=== PATIENT | female | born 1975 | race Caucasian/White ===

== ENCOUNTER 2020-12-15 11:17 | Emergency (ER) | payer BC, SELFPAY ==
--- NOTE | ~2020-12-15 | US_ITS ---
EXAMINATION: US abdomen limited DATE: 12/15/2020 12:23 INDICATION: Abdominal pain TECHNIQUE: Multiple grayscale and Doppler ultrasound images of the abdomen were obtained. COMPARISON: None available FINDINGS: The head and body of the pancreas are normal. The pancreatic tail is obscured by bowel gas. The liver demonstrates increased echogenicity, heterogenous echotexture, and decreased through trans mission. No surface nodularity. Normal hepatopetal flow in the main portal vein. The gallbladder is n ormal with no abnormal wall thickening, pericholecystic fluid or stones. The mildly dilated common bi le duct measures 8 mm. Sonographic Melissa sign is positive. IMPRESSION: 1. Mild enlargement of the common bile duct and positive sonographic Melissa sign of unclear significa nce. Normal-appearing gallbladder. Reviewed, dictated and finalized at location A. IMPRESSION: 1. Mild enlargement of the common bile duct and positive sonographic Melissa sig n of unclear significance. Normal-appearing gallbladder.
--- NOTE | ~2020-12-15 | CT_ITS ---
EXAMINATION: CT abdomen pelvis w con DATE: 12/15/2020 15:05 INDICATION: Abdomen pain. Pancreatitis. TECHNIQUE: Computed tomography (CT) of the abdomen and pelvis was performed with 100 cc Omnipaque 350 intravenous contrast. The dose-length product was 1246.67 mGy-cm. Automated exposure control and ite rative reconstruction technique were employed. COMPARISON: None. FINDINGS: Lung bases are unremarkable. Heart size is normal. No significant pleural or pericardial ef fusion. No significant vascular abnormality. No lymphadenopathy. Fatty infiltration of the liver. There is a fat-containing umbilical hernia. The spleen, pancreas, adrenal glands and kidneys are unremarkable. Bowel pattern is nonobstructive. N o abnormal pelvic masses or fluid collections. Bladder is decompressed. Normal appendix. Gallbladder is present. Mild lower thoracic and lumbar spondylosis. No acute osseous abnormality. IMPRESSION: 1. No acute abdominal abnormality. 2: Hepatic steatosis. 3: Fat-containing umbilical hernia. Reviewed, dictated and finalized at location A.
[2020-12-15 11:22] VITALS: BP 138/97; PULSE 95; RESP 18; TEMP 36.8; O2SAT 100
[2020-12-15 11:52] LABS: Basophils Percent Auto 0.3 % (0.2-1.2); Eosinophils Absolute Auto 0.1 K/mm3 (0-0.3); Eosinophils Percent Auto 1.1 % (0-4.4); Hematocrit 45.4 % (37.0-47.0); Hemoglobin 15.6 g/dL (12.0-15.0); Immature Granulocyte Absolute 0.11 K/mm3 (0.00-0.031); Immature Granulocyte Percent A 1.1 % (0-0.5); Lymphocytes Absolute Auto 2.15 K/mm3 (0.9-3.2); Lymphocytes Percent Auto 21.7 % (18.3-44.2); Mean Corpuscular HGB Conc 34.4 g/dl (32-36); Mean Corpuscular Hemoglobin 30.6 pg (26-34); Mean Platelet Volume 10.2 fl (7.4-10.4); Monocytes Absolute Auto 0.5 K/mm3 (0.1-0.6); Monocytes Percent Auto 5.4 % (2.6-8.5); Neutrophils Percent Auto 70.4 % (45.5-73.1); Platelet Count Result 197 k/mm3 (150-375); Red Cell Distribution Width 12.1 % (11.5-14.5); White Blood Count 9.9 K/mm3 (4.5-10.0)
[2020-12-15 11:56] LABS: Add Urine Microscopic? YES; Appearance Urine Clear (Clear); Bilirubin Urine Negative (Negative); Blood Urine Negative (Negative); Color Urine Yellow (Yellow); Glucose Urine UA 1+ mg/dL (Negative); Ketones Urine Negative (Negative); Leukocyte Esterase Ur Negative LEU/UL (Negative); Nitrate Urine Negative (Negative); Protein Urine Negative (Negative); RBC Urine 0-2 /hpf (0-2); Specific Grav Ur 1.009 (1.001-1.035); Squamous Epithelial Cell Urine Occasional /hpf (Few); Urobilinogen Urine Negative mg/dL (<2.0); WBC Urine 0-3 /hpf
--- NOTE | 2020-12-15 11:56 | ED.GENADULT ---
HPI - General Adult General Chief complaint: Abdominal Pain Stated complaint: my gallbladder went kaput Time Seen by Provider: 12/15/20 11:40 Source: patient History of Present Illness HPI narrative: Patient is a 45 y/o female complaining of intermittent epigastric pain starting 1 week. She describes her pain as sharp and rates it as 7/10. Her pain radiates to her back and chest. She states that certain food makes her pain worse. She took Ex-lax which did not help with her pain. She has some nausea, but no vomiting or diarrhea. She states that she was told she had gallbladder problem 9 years ago. Related Data Allergies Allergy/AdvReac Type Severity Reaction Status Date / Time latex AdvReac Rash Verified 12/15/20 11:25 Review of Systems Constitutional: Constitutional: Denies chills, Denies fever(s), Denies headache(s) and Denies weakness Eyes: Eyes: Denies blurry vision ENT: Denies headache(s) and Denies neck pain Cardiovascular: Cardiovascular: Reports chest pain and Denies dyspnea Respiratory: Respiratory: Denies cough and Denies dyspnea Gastrointestinal: Gastrointestinal: Reports abdominal pain, Denies diarrhea, Reports nausea and Denies vomiting Genitourinary: Genitourinary: Denies hematuria and Denies dysuria Musculoskeletal: Musculoskeletal: Denies back pain and Denies neck pain Neurologic: Denies headache(s) and Denies weakness Exam Const: General: no acute distress and well developed Orientation/consciousness: oriented to person, oriented to place, oriented to time and patient oriented x3 HENMT: Head: normocephalic Ears: external ears normal General nose exam: Normal external nose present Eyes: General: appearance normal, both eyes and all related structures Conjunctivae: conjunctivae normal Neck: Neck: normal visual inspection and full ROM Chest: Chest palpation & inspection: normal inspection of the chest and no tenderness Resp: Effort & Inspection: normal respiratory effort Auscultation: clear to auscultation bilaterally Cardio: Rate: regular rate Rhythm: regular rhythm GI: GI Palp: Yes abdominal tenderness (epigastric) and Yes Soft to palpation Skin: General skin exam: normal color and turgor normal Neuro: General: oriented to person, oriented to place, oriented to time and patient oriented x3 Cognition (Neuro): normal cognition Extrem: General: normal to inspection, full ROM and no pedal edema Psych: Appearance: grossly normal Mental Status: mental status grossly normal Affect: normal affect Course Reevaluation(s) Reevaluation #1: Discussed with patient about test results. Offered patient admission for observation and GI consultation. Patient declined and wanted to be discharged instead. Date: 12/15/20 Time: 16:40 Consultations Consultation #1: Discussed with Dr. Ethan paul, who agrees to follow up in office. Date: 12/15/20 Time: 16:43 Vital Signs Vital signs: Vital Signs Temperature 36.8 C 12/15/20 11:22 Pulse Rate 95 12/15/20 11:22 Respiratory Rate 18 12/15/20 11:22 Blood Pressure 138/97 H 12/15/20 11:22 Pulse Oximetry 100 12/15/20 11:22 Temperature 36.8 C 12/15/20 11:22 Pulse Rate 78 12/15/20 17:17 Respiratory Rate 18 12/15/20 17:17 Blood Pressure 142/90 H 12/15/20 17:17 Pulse Oximetry 100 12/15/20 17:17 Medical Decision Making Vital Signs Vital Signs: Vital Signs Temperature 36.8 C 12/15/20 11:22 Pulse Rate 95 12/15/20 11:22 Respiratory Rate 18 12/15/20 11:22 Blood Pressure 138/97 H 12/15/20 11:22 Pulse Oximetry 100 12/15/20 11:22 Temperature 36.8 C 12/15/20 11:22 Pulse Rate 78 12/15/20 17:17 Respiratory Rate 18 12/15/20 17:17 Blood Pressure 142/90 H 12/15/20 17:17 Pulse Oximetry 100 12/15/20 17:17 Lab Data Result diagrams: 12/15/20 11:41 12/15/20 11:41 Labs: Lab Results 12/15/20 12/15/20 12/15/20 Range/Units 11:40 11:41 11:41 WBC 9.9 (4.5-10.
[2020-12-15] MEDS: KETOROLAC 30 MG/ML VIAL (*BKC) IV PUSH (12:02)
[2020-12-15] MEDS: METOCLOPRAMIDE HCL INJ 10 MG/2 ML VIAL IV PUSH (12:02)
--- NOTE | 2020-12-15 12:03 | ECG_ITS ---
Measurements Intervals Rescue Rate: 76 P: 38 [place]: 139 QRS: 38 QRSD: 82 T: 48 QT: 391 QTc: 440 Interpretive Statements SINUS RHYTHM BASELINE WANDER- I, II, AVR, AVL, AVF, V1-V6 NORMAL ECG Electronically Signed On 12-15-2020 16:06:04 CDT by Mahamed Mckinney D.O.
[2020-12-15 13:09] LABS: Alanine Aminotransferase 23 U/L (4-35); Albumin Level 3.7 g/dL (3.5-5.1); Alkaline Phosphatase 65 U/L (38-126); Anion Gap 6 mmol/L (8-16); Aspartate Amino Transferase 19 U/L (14-36); Bilirubin,Total 0.2 mg/dL (0.2-1.3); Blood Urea Nitrogen 4 mg/dL (7-17); Calcium 8.8 mg/dL (8.4-10.2); Carbon Dioxide 26 mmol/L (22-30); Chloride 108 mmol/L (98-107); Estimated CRCL calculation 89 ml/min; Estimated Glomerular Filt Rate > 60; Glucose 179 mg/dL (65-110); Potassium 3.3 mmol/L (3.4-5.0); Sodium 140 mmol/L (137-145)
[2020-12-15 13:28] VITALS: BP 126/72; PULSE 83; RESP 18; O2SAT 99
[2020-12-15 14:14] LABS: Lipase 12034 U/L (23-300)
[2020-12-15 14:41] LABS: Troponin I < 0.012 ng/mL (0.000-0.034)
[2020-12-15] MEDS: POTASSIUM CHLORIDE 20 MEQ TABLET PO (14:56)
[2020-12-15 16:00] LABS: Troponin I < 0.012 ng/mL (0.000-0.034)
[2020-12-15 17:17] VITALS: BP 142/90; PULSE 78; RESP 18; O2SAT 100
== END 2020-12-15 17:15 | disposition home or self-care (01) ==
PROVIDERS: Emergency Medicine; Emergency Provider Emergency Medicine
DX: K85.90 Acute pancreatitis without necrosis or infection, unspecified (principal)
CPT/HCPCS: 36415; 74177; 76705; 80053; 81001; 81025; 83690; 84484; 85025; 93005; 96374; 96375; 99284; A9270; J1885; J2765; Q9967

== ENCOUNTER → 2021-02-20 00:59 | Outpatient (CLI) | payer BC, SELFPAY ==
[2021-02-21 16:52] LABS: SARS-CoV-2 RNA PCR Negative
== END ==
PROVIDERS: PCP Emergency Medicine; Visit Provider Internal Medicine Gastroenterology
DX: Z01.812 Encounter for preprocedural laboratory examination (principal); Z20.822 Contact with and (suspected) exposure to COVID-19
CPT/HCPCS: C9803; U0003; U0005

== ENCOUNTER 2021-02-25 00:04 | Day surgery (SDC) | payer BC, SELFPAY ==
[2020-12-31 12:00] VITALS: BMI 39.1
[2021-02-06 10:59] VITALS: BMI 39.1
--- NOTE | 2021-02-06 11:14 | PC.NURSE ---
Spoke with pt re rescheduled EGD & colonoscopy. Pt confirmed no change to home medication regimen or changes in health history since previously completed PAT call on 12/31/20. Updated pt with new COVID test date & time as well as hospital arrival/procedure start time. Pt verbalized understanding.
[2021-02-25 08:31] VITALS: BP 132/98; PULSE 94; RESP 17; TEMP 36.1; O2SAT 100
[2021-02-25] MEDS: LACTATED RINGERS 1,000 ML 150 ML IV CONT (08:44)
--- NOTE | 2021-02-25 08:54 | WPDANESEPPF ---
Anes - Initial Pre Proc Eval Procedure: Operation Date: 02/25/21 09:45 Proposed Procedures p Esophagogastroduodenoscopy & Screening Colonoscopy - Rashawn Sloan MD Date/Time: 02/25/21 08:54 Surgeon: Rashawn Sloan MD Pre Op Diagnosis: neoplasm screening, hx of colon polyps, RUQP Patient Data Age: 45 Gender: F Height: 1.55 m Weight: 96.1 kg Last Vital Signs Temp 96.9 F L 02/25/21 08:31 Pulse 94 02/25/21 08:31 Resp 17 02/25/21 08:31 BP 132/98 H 02/25/21 08:31 Pulse Ox 100 02/25/21 08:31 Allergies Allergy/AdvReac Type Severity Reaction Status Date / Time adhesive tape AdvReac Rash Verified 02/25/21 08:30 latex AdvReac Rash Verified 02/25/21 08:30 Home Medications Medication Instructions Recorded Confirmed Type No Home Medications 12/31/20 02/06/21 History Patient hx anesthesia problems: none Family hx anesthesia problems: none Results Review: All pre-operative results and documents have been reviewed as part of the pre-operative evaluation. [facility] Past Medical History Medical History (Updated 12/18/20 @ 09:26 by Rashawn Sloan MD) Colon polyp Obesity (BMI 30-39.9) RUQ pain Tobacco abuse Umbilical hernia Social History Social History (Updated 12/18/20 @ 08:59 by Christie Draper CMA) Smoking packs per day: 2 Smoking cigarettes per day: 40.0 Years smoked: 30 Smoking pack-years: 60.00 Smoking status: Current every day smoker Tobacco type: cigarettes Alcohol intake: current Alcohol use details: social Substance use: current Substance use type: marijuana Other substance usage details: daily Living arrangements: with family Spiritual care concerns: No Anes - Eval Final PreProcedure Day of Procedure 02/25/21 08:54 Patient weight: morbidly obese Heart: regular rate and rhythm Lungs: clear to auscultation Airway: Mallampati scale class II Neurological: alert and oriented Last oral intake: >/= 8 hours ASA classification: III Emergent: no Anesthetic plan: proceed Anesthesia type and monitoring: general GIVS and standard monitoring Results Review: All pre-operative results and documents have been reviewed as part of the pre-operative evaluation. Informed Consent: The patient's anesthetic plan and its attendant risks and benefits were discussed with the patient/family/POA. Questions were solicited and answers provided to the satisfaction of the patient/family/POA.
--- NOTE | 2021-02-25 09:09 | SUR.PREOP ---
Upon admission, patient states she had has a tubal ligation in past and had not had a period for 1.5 years, however she states she started a period randomly last night. Informed Dr. Fernandez, who stated that urine test is not needed due to previous tubal ligation. Urine ordered cancelled.
--- NOTE | 2021-02-25 09:24 | PM.HPGS ---
History of Present Illness History of Present Illness Consent: Risks, benefits, and alternatives have been discussed and questions answered. Patient agrees to proceed with procedure. Chief complaint: neoplasm screening, hx of colon polyps, RUQP Narrative: Brigitte Quesada is a 45 year old female with ruq pain and previous pancreatitis, probably GB related- already seen surgeon at [facility] and schedule to have lap bjorn in near future, she is doing ok now. Also due to have a colonoscopy (had polyps years ago) Review of Systems Constitutional: Constitutional: Denies headache(s) and Denies weakness Eyes: Eyes: Denies blurry vision ENT: Reports Normal hearing present, Denies headache(s) and Denies neck pain Cardiovascular: Cardiovascular: Denies chest pain and Denies dyspnea Respiratory: Respiratory: Denies dyspnea Gastrointestinal: Gastrointestinal: Reports no additional gastrointestinal complaints Genitourinary: Genitourinary: Denies dysuria Musculoskeletal: Musculoskeletal: Denies neck pain Integumentary/Breasts: Skin/Breast: Denies dry skin Neurologic: Reports Normal hearing present, Denies headache(s) and Denies weakness Psychiatric: Psychiatric: Denies anxiety Endocrine: Endocrine: Denies change in body appearance Hematologic/Lymphatic: Hematologic/Lymphatic: Denies easy bleeding Allergic/Immunologic: Allergic/Immunologic: Denies urticaria PMFSH Past Medical History Medical History (Updated 12/18/20 @ 09:26 by Rashawn Sloan MD) Colon polyp Obesity (BMI 30-39.9) RUQ pain Tobacco abuse Umbilical hernia Social History Social History (Updated 12/18/20 @ 08:59 by Christie Draper CMA) Smoking packs per day: 2 Smoking cigarettes per day: 40.0 Years smoked: 30 Smoking pack-years: 60.00 Smoking status: Current every day smoker Tobacco type: cigarettes Alcohol intake: current Alcohol use details: social Substance use: current Substance use type: marijuana Other substance usage details: daily Living arrangements: with family Spiritual care concerns: No Meds Home Medications and Allergies Home Medications Medication Instructions Recorded Confirmed Type No Home Medications 12/31/20 02/06/21 History Allergies Allergy/AdvReac Type Severity Reaction Status Date / Time adhesive tape AdvReac Rash Verified 02/25/21 08:30 latex AdvReac Rash Verified 02/25/21 08:30 Vital Signs Vital Signs - 24 hr 02/25/21 08:31 Temperature 96.9 F L Pulse Rate 94 Respiratory Rate 17 Blood Pressure 132/98 H Pulse Oximetry 100 Exam Const: General: comfortable and no acute distress HENMT: General nose exam: Normal nares present Eyes: General: appearance normal, both eyes and all related structures Neck: Neck: no JVD Resp: Auscultation: clear to auscultation bilaterally Cardio: Rate: regular rate Rhythm: regular rhythm GI: Inspection: non-distended GI Palp: Yes Soft to palpation Skin: General skin exam: normal color Neuro: General: gait normal Speech: normal speech Extrem: General: normal to inspection Psych: Mental Status: mental status grossly normal Assessment and Plan Assessment and plan (1) RUQ pain: Code(s): R10.11 - Right upper quadrant pain Status: Acute Assessment and Plan: egd to check if pud (2) Colon polyp: Code(s): K63.5 - Polyp of colon Status: Acute Assessment and Plan: due to have another colonoscopy
[2021-02-25 10:03] VITALS: BP 137/98; PULSE 89; RESP 22; O2SAT 100
[2021-02-25 10:13] VITALS: BP 116/81; PULSE 87; RESP 24; O2SAT 98
[2021-02-25 10:23] VITALS: BP 129/81; PULSE 80; RESP 19; O2SAT 99
--- NOTE | 2021-02-25 10:37 | SUR.OPER ---
EGD start 933 end 937 Colonoscopy start 942 end 957
== END 2021-02-25 10:31 | disposition home or self-care (01) ==
PROVIDERS: Visit Provider Internal Medicine Gastroenterology
PROC: 0DJD8ZZ Inspection of Lower Intestinal Tract, Via Natural or Artificial Opening Endoscopic (ICD-10-PCS; CPT 45378; principal; 2021-02-25 09:45)
DX: Z12.11 Encounter for screening for malignant neoplasm of colon (principal); D12.2 Benign neoplasm of ascending colon; K63.5 Polyp of colon; K62.1 Rectal polyp; K57.30 Diverticulosis of large intestine without perforation or abscess without bleeding; K64.8 Other hemorrhoids; K31.89 Other diseases of stomach and duodenum; F17.210 Nicotine dependence, cigarettes, uncomplicated; E66.01 Morbid (severe) obesity due to excess calories; Z68.41 Body mass index [BMI] 40.0-44.9, adult
CPT/HCPCS: 45385; 43239; 88305; J2704; J7120

== ENCOUNTER 2021-11-18 07:50 | Outpatient (CLI) | payer BC, SELFPAY ==
--- NOTE | ~2021-11-18 | NM_ITS ---
EXAMINATION: NM hepatobiliary wo pharm DATE: 11/18/2021 10:28 CDT INDICATION: Right upper quadrant pain COMPARISON: CT dated 12/15/2020. TECHNIQUE: 5 mCi Tc-99m mebrofenin (Choletec) was administered intravenously. Scintigraphic images o f the abdomen were obtained for one hour. At the 1 hour time point, the patient drank 8 oz Ensure, an d imaging was continued for 60 minutes. Gallbladder ejection fraction was calculated by the technolog ist. FINDINGS: There is normal clearance of radiotracer from the blood pool. There is homogeneous tracer u ptake by the liver. Activity progresses to the bowel and gallbladder. The gallbladder ejection fract ion is 80%. Note that with this technique, normal GBEF >= 33%. IMPRESSION: 1. Normal hepatobiliary scan. Reviewed, dictated and finalized at location B.
[2021-11-22 18:42] LABS: H pylori Ag Stool Not Detected (Not Detected)
== END 2021-11-18 07:51 | disposition home or self-care (01) ==
PROVIDERS: Visit Provider Surgery
DX: R10.11 Right upper quadrant pain (principal)
CPT/HCPCS: 78226; 87338; A9537

== ENCOUNTER 2022-03-29 12:11 | Outpatient (CLI) | payer BC, SELFPAY ==
[2022-03-29 14:06] LABS: Basophils Absolute Auto 0.1 K/mm3 (0.0-0.1); Basophils Percent Auto 0.7 % (0.2-1.2); Eosinophils Absolute Auto 0.1 K/mm3 (0-0.3); Eosinophils Percent Auto 1.6 % (0-4.4); Hematocrit 52.7 % (37.0-47.0); Hemoglobin 17.1 g/dL (12.0-15.0); Immature Granulocyte Absolute 0.06 K/mm3 (0.00-0.031); Immature Granulocyte Percent A 0.7 % (0-0.5); Lymphocytes Absolute Auto 2.36 K/mm3 (0.9-3.2); Lymphocytes Percent Auto 27.5 % (18.3-44.2); Mean Corpuscular HGB Conc 32.4 g/dl (32-36); Mean Corpuscular Hemoglobin 30.4 pg (26-34); Mean Corpuscular Volume 93.6 fl (80-100); Mean Platelet Volume 10.6 fl (7.4-10.4); Monocytes Absolute Auto 0.5 K/mm3 (0.1-0.6); Neutrophils Absolute Auto 5.4 K/mm3 (1.3-6.7); Neutrophils Percent Auto 63.5 % (45.5-73.1); Platelet Count Result 231 k/mm3 (150-375); Red Blood Count 5.63 M/mm3 (4.2-5.4); Red Cell Distribution Width 12.8 % (11.5-14.5); White Blood Count 8.6 K/mm3 (4.5-10.0)
[2022-03-29 14:11] LABS: Alanine Aminotransferase 56 U/L (6-35); Albumin Level 4.1 g/dL (3.5-5.1); Alkaline Phosphatase 73 U/L (38-126); Anion Gap 4 mmol/L (8-16); Aspartate Amino Transferase 39 U/L (14-36); Bilirubin,Total 0.5 mg/dL (0.2-1.3); Blood Urea Nitrogen 11 mg/dL (7-17); Calcium 8.8 mg/dL (8.4-10.2); Carbon Dioxide 27 mmol/L (22-30); Chloride 108 mmol/L (98-107); Cholesterol 264 mg/dL (0-200); Estimated Glomerular Filt Rate > 60; Glucose 96 mg/dL (65-110); HDL Direct 39 mg/dL; Potassium 3.9 mmol/L (3.4-5.0); Sodium 139 mmol/L (137-145); Triglycerides 342 mg/dL (<150)
[2022-03-29 14:22] LABS: LDL Cholesterol Direct 168 mg/dL
[2022-03-30 12:05] LABS: Hemoglobin A1C 6.8 % (<5.7)
== END 2022-03-29 12:12 | disposition home or self-care (01) ==
LOC: ANHLAB 12:12
PROVIDERS: PCP Family Medicine; Visit Provider Nurse Practitioner Gerontology
DX: E11.9 Type 2 diabetes mellitus without complications (principal); E78.5 Hyperlipidemia, unspecified; R71.8 Other abnormality of red blood cells
CPT/HCPCS: 36415; 80053; 80061; 83036; 85025

== ENCOUNTER 2022-04-06 17:36 | Outpatient (CLI) | payer BC, SELFPAY ==
--- NOTE | ~2022-04-06 | MM_ITS ---
EXAMINATION: MM screening sarwat BI w praveena HISTORY: Screening mammogram TECHNIQUE: Craniocaudal and mediolateral oblique 3-D tomosynthesis images were obtained and synthetic 2-D images were generated. CAD analysis was submitted and interpreted. COMPARISON: No prior mammogram is available for comparison at this institution. BREAST PARENCHYMAL COMPOSITION: FINDINGS: There is no evidence of suspicious mass, calcification, or architectural distortion to sugg est malignancy in either breast. There has been no suspicious interval change. IMPRESSION: 1. No mammographic evidence of malignancy. 2. Recommend routine screening mammography in one year. BI-RADS Category 1: Negative Reviewed, dictated and finalized at location A. ET MANAGER
== END 2022-04-06 17:37 | disposition home or self-care (01) ==
PROVIDERS: PCP Family Medicine; Visit Provider Family Medicine
DX: Z12.31 Encounter for screening mammogram for malignant neoplasm of breast (principal)
CPT/HCPCS: 77063; 77067

== ENCOUNTER 2022-04-26 10:30 | Outpatient (RCR) | payer BC, SELFPAY ==
[2022-02-09 11:04] VITALS: BMI 39.4
[2022-02-09 12:22] VITALS: BMI 39.4
== END 2022-04-27 08:56 | disposition home or self-care (01) ==
LOC: ANHDMC 10:30
PROVIDERS: PCP Family Medicine; Visit Provider Physician Assistant
DX: E11.65 Type 2 diabetes mellitus with hyperglycemia (principal); Z71.3 Dietary counseling and surveillance; Z71.89 Other specified counseling
CPT/HCPCS: 97802; G0108

== ENCOUNTER 2022-06-03 08:16 | Outpatient (CLI) | payer BC, SELFPAY ==
--- NOTE | 2022-06-29 17:35 | WPDHOMESLEEP ---
Sleep Study - Home Unattended Date of Study: 06/03/22 Ordering Provider: Demian Cervantes APRN Interpreting Provider: Susi Goodrich, DO Home Sleep Study Type: Watch PAT Height: 1.52 m Weight: 95.254 kg Body Mass Index: 41.0 Neck Circumference (inches): 17 Arbuckle: 9 Reason for Sleep Study Snoring, nocturnal gasping Sleep History The patient is a 47-year-old female with type 2 diabetes, hyperlipidemia, morbid obesity and current tobacco use that had a sleep study ordered by the pulmonary group for evaluation of sleep apnea. The patient frequently awakens from sleep short of breath. She frequently awakens at night with heartburn, belching or cough. She frequently snores and is occasionally loud enough that others complain. She frequently has trouble sleeping when she has a cold. She frequently wakes up gasping for air throughout the night. She frequently has breathing problems at night observed by herself or others. She occasionally sweats excessively at night. She frequently has heart palpitations or irregular heartbeats during the night. She occasionally falls asleep during the day. She denies falling asleep while driving. She denies cataplexy. She occasionally has trouble at school or work due to sleepiness. She occasionally feels unable to move with waking up or falling asleep. She rarely experiences vivid dreamlike scenes upon awakening or falling asleep. She occasionally feels afraid of going to sleep. She occasionally has nightmares. She rarely remembers her dreams. She frequently has thoughts racing through her mind. She occasionally feels sad or depressed. She frequently has anxiety. She frequently has muscular tension. She frequently notices parts of her body jerk. She occasionally kicks during the night. She rarely has crawling and aching feelings in her legs and rarely has leg pain during the night. She occasionally grinds her teeth during sleep but never awakens morning jaw pain. She is occasionally bothered by pain during the day and occasionally awakened by pain during the night. She frequently wakes up feeling stiff in the morning. She frequently wakes up with sore or achy muscles. She frequently wakes up with pain in the neck, spine or other joints. She goes to bed between 11:00 p.m. to midnight on weekdays between midnight to 2:00 a.m. on the weekends. She takes 10-20 minutes to fall asleep. She wakes up 2-3 times throughout the night to urinate and is able fall back asleep within a few minutes. She wakes up at 7:00 a.m. on both weekdays and weekends. She typically gets 6-7 hours of sleep per night. She will stay in bed for 3-5 minutes after waking up in the morning. She currently lives with her , mother and 3 children. She will consume caffeinated beverages within 2 hours of bedtime. She does not engage in physical exercise before bedtime. She will watch television before falling asleep. She denies taking naps in the afternoon with a chief. She will consume caffeinated beverages throughout the day. She currently smokes 2 packs of cigarettes per day. She currently uses marijuana. She denies alcohol use. [facility] Past Medical History Medical History Colon polyp High cholesterol Obesity (BMI 30-39.9) RUQ pain Tobacco abuse Umbilical hernia Surgical History Surgical History H/O section Family History Family History Sibling Family history of mental disorder Depression Mother Family history of bipolar disorder Family history of alcoholism Family history of liver disease Family history of hepatitis Family history of hemochromatosis Other Cerebrovascular accident Diabetes mellitus Heart disease Hypertension Social History Social History (Reviewed 06/29/22 @ 17:37 by Susi Goodrich,
[2022-06-29 17:46] VITALS: BMI 41.0
== END 2022-06-04 10:43 | disposition home or self-care (01) ==
PROVIDERS: PCP Family Medicine; Visit Provider Nurse Practitioner Family
DX: G47.33 Obstructive sleep apnea (adult) (pediatric) (principal); E66.9 Obesity, unspecified; Z68.41 Body mass index [BMI] 40.0-44.9, adult; F17.210 Nicotine dependence, cigarettes, uncomplicated
CPT/HCPCS: 95800

== ENCOUNTER 2022-07-14 11:44 | Outpatient (CLI) | payer BC, SELFPAY ==
[2022-07-14 12:08] LABS: Basophils Percent Auto 0.5 % (0.2-1.2); Eosinophils Absolute Auto 0.1 K/mm3 (0-0.3); Eosinophils Percent Auto 1.6 % (0-4.4); Hematocrit 49.1 % (37.0-47.0); Hemoglobin 16.3 g/dL (12.0-15.0); Immature Granulocyte Absolute 0.06 K/mm3 (0.00-0.031); Immature Granulocyte Percent A 0.7 % (0-0.5); Lymphocytes Absolute Auto 2.16 K/mm3 (0.9-3.2); Lymphocytes Percent Auto 26.4 % (18.3-44.2); Mean Corpuscular HGB Conc 33.2 g/dl (32-36); Mean Corpuscular Hemoglobin 30.1 pg (26-34); Mean Corpuscular Volume 90.8 fl (80-100); Mean Platelet Volume 10.1 fl (7.4-10.4); Monocytes Absolute Auto 0.4 K/mm3 (0.1-0.6); Monocytes Percent Auto 4.9 % (2.6-8.5); Neutrophils Absolute Auto 5.4 K/mm3 (1.3-6.7); Neutrophils Percent Auto 65.9 % (45.5-73.1); Platelet Count Result 223 k/mm3 (150-375); Red Blood Count 5.41 M/mm3 (4.2-5.4); Red Cell Distribution Width 12.3 % (11.5-14.5); White Blood Count 8.2 K/mm3 (4.5-10.0)
[2022-07-14 18:02] LABS: Iron 91 ug/dL (37-170)
[2022-07-14 18:12] LABS: Percent Iron Saturation 28 % (20-50)
[2022-07-14 18:19] LABS: Alanine Aminotransferase 54 U/L (6-35); Albumin Level 4.2 g/dL (3.5-5.1); Alkaline Phosphatase 63 U/L (38-126); Anion Gap 5 mmol/L (8-16); Aspartate Amino Transferase 48 U/L (14-36); Bilirubin,Total 0.6 mg/dL (0.2-1.3); Blood Urea Nitrogen 8 mg/dL (7-17); Calcium 8.9 mg/dL (8.4-10.2); Carbon Dioxide 32 mmol/L (22-30); Chloride 104 mmol/L (98-107); Estimated Glomerular Filt Rate > 60; Glucose 89 mg/dL (65-110); Sodium 141 mmol/L (137-145)
[2022-07-18 11:34] LABS: Erythropoietin (EPO) 10.5 mIU/mL (2.6-18.5)
== END 2022-07-14 11:45 | disposition home or self-care (01) ==
LOC: ANHLAB 11:46
PROVIDERS: PCP Family Medicine; Visit Provider Internal Medicine Hematology & Oncology
DX: D75.1 Secondary polycythemia (principal); E83.19 Other disorders of iron metabolism
CPT/HCPCS: 36415; 80053; 81256; 82668; 82728; 83540; 83550; 85025

== ENCOUNTER 2022-08-19 16:26 | Outpatient (CLI) | payer BC, SELFPAY ==
[2022-08-19 17:11] LABS: Alanine Aminotransferase 39 U/L (6-35); Albumin Level 4.1 g/dL (3.5-5.1); Alkaline Phosphatase 62 U/L (38-126); Anion Gap 2 mmol/L (8-16); Aspartate Amino Transferase 32 U/L (14-36); Bilirubin,Total 0.4 mg/dL (0.2-1.3); Blood Urea Nitrogen 10 mg/dL (7-17); Calcium 8.9 mg/dL (8.4-10.2); Carbon Dioxide 31 mmol/L (22-30); Chloride 106 mmol/L (98-107); Estimated Glomerular Filt Rate > 60; Glucose 134 mg/dL (65-110); Potassium 3.9 mmol/L (3.4-5.0); Sodium 139 mmol/L (137-145)
[2022-08-19 18:02] LABS: Hemoglobin A1C 6.2 % (<5.7)
== END 2022-08-19 16:27 | disposition home or self-care (01) ==
LOC: ANHLAB 16:26
PROVIDERS: PCP Family Medicine; Visit Provider Family Medicine
DX: E11.9 Type 2 diabetes mellitus without complications (principal)
CPT/HCPCS: 36415; 80053; 83036

== ENCOUNTER 2022-12-16 15:33 | Outpatient (CLI) | payer BC, SELFPAY ==
[2022-12-16 16:54] LABS: Potassium 3.3 mmol/L (3.4-5.0)
[2022-12-16 17:05] LABS: Alanine Aminotransferase 26 U/L (6-35); Alkaline Phosphatase 64 U/L (38-126); Anion Gap 7 mmol/L (8-16); Aspartate Amino Transferase 25 U/L (14-36); Bilirubin,Total 0.4 mg/dL (0.2-1.3); Blood Urea Nitrogen 6 mg/dL (7-17); Calcium 8.9 mg/dL (8.4-10.2); Carbon Dioxide 29 mmol/L (22-30); Chloride 102 mmol/L (98-107); Estimated Glomerular Filt Rate > 60; Glucose 103 mg/dL (65-110); Sodium 138 mmol/L (137-145)
[2022-12-16 18:12] LABS: Hemoglobin A1C 6.5 % (<5.7)
== END 2022-12-16 15:34 | disposition home or self-care (01) ==
LOC: ANHLAB 15:35
PROVIDERS: PCP Family Medicine; Visit Provider Family Medicine
DX: E11.9 Type 2 diabetes mellitus without complications (principal); I10 Essential (primary) hypertension
CPT/HCPCS: 36415; 80053; 83036

== ENCOUNTER 2023-08-03 09:18 | Outpatient (CLI) | payer BC, SELFPAY ==
[2023-08-03 10:06] LABS: Basophils Absolute Auto 0.1 K/mm3 (0.0-0.1); Basophils Percent Auto 0.6 % (0.2-1.2); Eosinophils Absolute Auto 0.1 K/mm3 (0-0.3); Eosinophils Percent Auto 1.3 % (0-4.4); Hematocrit 50.6 % (37.0-47.0); Hemoglobin 16.5 g/dL (12.0-15.0); Immature Granulocyte Absolute 0.05 K/mm3 (0.00-0.031); Immature Granulocyte Percent A 0.6 % (0-0.5); Lymphocytes Absolute Auto 2.04 K/mm3 (0.9-3.2); Mean Corpuscular HGB Conc 32.6 g/dl (32-36); Mean Corpuscular Hemoglobin 29.8 pg (26-34); Mean Corpuscular Volume 91.5 fl (80-100); Mean Platelet Volume 10.5 fl (7.4-10.4); Monocytes Absolute Auto 0.4 K/mm3 (0.1-0.6); Monocytes Percent Auto 5.3 % (2.6-8.5); Neutrophils Absolute Auto 5.5 K/mm3 (1.3-6.7); Neutrophils Percent Auto 67.2 % (45.5-73.1); Platelet Count Result 198 k/mm3 (150-375); Red Blood Count 5.53 M/mm3 (4.2-5.4); Red Cell Distribution Width 12.5 % (11.5-14.5); White Blood Count 8.2 K/mm3 (4.5-10.0)
[2023-08-03 10:13] LABS: Alanine Aminotransferase 28 U/L (6-35); Alkaline Phosphatase 65 U/L (38-126); Anion Gap 4 mmol/L (4-12); Aspartate Amino Transferase 26 U/L (14-36); Bilirubin,Total 0.4 mg/dL (0.2-1.3); Blood Urea Nitrogen 6 mg/dL (7-17); Calcium 8.8 mg/dL (8.4-10.2); Carbon Dioxide 29 mmol/L (22-30); Chloride 108 mmol/L (98-107); Cholesterol 139 mg/dL (0-200); Estimated Glomerular Filt Rate > 60; Glucose 151 mg/dL (65-110); HDL Direct 42 mg/dL; Potassium 3.5 mmol/L (3.4-5.0); Sodium 141 mmol/L (137-145); Triglycerides 171 mg/dL (<150)
[2023-08-03 10:17] LABS: Hemoglobin A1C 7.4 % (<5.7)
[2023-08-03 10:24] LABS: LDL Cholesterol Direct 86 mg/dL
[2023-08-03 10:51] LABS: Creatinine Urine 86.5 mg/dL
[2023-08-03 11:00] LABS: MALB Creatinine Ratio < 6.9 mg/g (0-30); Microalbumin Urine Random < 6.0 mg/L (0-16.7)
== END 2023-08-03 09:19 | disposition home or self-care (01) ==
LOC: ANHLAB 09:20
PROVIDERS: PCP Family Medicine; Visit Provider Family Medicine
DX: E11.9 Type 2 diabetes mellitus without complications (principal); I10 Essential (primary) hypertension; E78.2 Mixed hyperlipidemia
CPT/HCPCS: 36415; 80053; 80061; 82043; 83036; 85025

== ENCOUNTER 2023-08-29 10:12 | Outpatient (CLI) | payer BC, SELFPAY ==
--- NOTE | ~2023-08-29 | CT_ITS ---
CT Scan of the Chest without Contrast: Clinical Indication: Lung cancer screening, nicotine dependence Technique: Contiguous sections were acquired throughout the chest without intravenous contrast. Dose reduction technique was used on this scan by utilizing automated exposure control and iterative recon struction technique. The dose-length product (DLP) was 234.19 mGy-cm. Findings: There is no evidence of any significant mediastinal, hilar or axillary lymphadenopathy. The mediastin al soft tissues appear normal. There is no evidence of pleural or pericardial effusion. The lungs are clear. No pulmonary nodules or infiltrates are noted. Images through the upper abdomen reveal probable hepatomegaly. Impression: Lung RADS 1: Negative. 12 month follow-up screening CT advised. Reviewed, dictated and finalized at location . Impression: Lung RADS 1: Negative. 12 month follow-up screening CT advised.
== END 2023-08-29 10:13 | disposition home or self-care (01) ==
PROVIDERS: PCP Family Medicine; Visit Provider Family Medicine
DX: Z12.2 Encounter for screening for malignant neoplasm of respiratory organs (principal); F17.210 Nicotine dependence, cigarettes, uncomplicated
CPT/HCPCS: 71271

== ENCOUNTER 2023-09-27 09:34 | Outpatient (CLI) | payer BC, SELFPAY ==
--- NOTE | ~2023-09-27 | US_ITS ---
US arterial ankle brachial ind INDICATION: Peripheral vascular disease TECHNIQUE: Segmental pressures and plethysmographic and Doppler waveforms of the brachial and lower e xtremity arteries were obtained. COMPARISON: None. FINDINGS: Right and left brachial artery pressures of 144 mm Hg and 155 mm Hg, respectively, are concordant (no rmal difference <= 30 mmHg). The right ankle-brachial index (CALE) is 1.15 (normal >= 0.9-1.0). The right great toe-brachial index (TBI) is 0.83 (normal >= 0.60). The left CALE is 1.09. The left TBI is 0.74. IMPRESSION: 1. Normal ankle-brachial indices. Reviewed, dictated and finalized at location B.
== END 2023-09-27 09:35 | disposition home or self-care (01) ==
PROVIDERS: PCP Family Medicine; Visit Provider Family Medicine
DX: I73.9 Peripheral vascular disease, unspecified (principal)
CPT/HCPCS: 93922

== ENCOUNTER 2023-12-13 10:17 | Outpatient (CLI) | payer BC, SELFPAY ==
[2023-12-13 10:56] LABS: Basophils Absolute Auto 0.1 K/mm3 (0.0-0.1); Basophils Percent Auto 0.7 % (0.2-1.2); Eosinophils Absolute Auto 0.2 K/mm3 (0-0.3); Eosinophils Percent Auto 1.8 % (0-4.4); Hematocrit 51.2 % (37.0-47.0); Hemoglobin 16.5 g/dL (12.0-15.0); Immature Granulocyte Absolute 0.12 K/mm3 (0.00-0.031); Immature Granulocyte Percent A 1.3 % (0-0.5); Lymphocytes Absolute Auto 2.05 K/mm3 (0.9-3.2); Lymphocytes Percent Auto 22.9 % (18.3-44.2); Mean Corpuscular HGB Conc 32.2 g/dl (32-36); Mean Corpuscular Hemoglobin 29.4 pg (26-34); Mean Corpuscular Volume 91.1 fl (80-100); Mean Platelet Volume 10.4 fl (7.4-10.4); Monocytes Absolute Auto 0.4 K/mm3 (0.1-0.6); Monocytes Percent Auto 4.9 % (2.6-8.5); Neutrophils Absolute Auto 6.1 K/mm3 (1.3-6.7); Neutrophils Percent Auto 68.4 % (45.5-73.1); Platelet Count Result 206 k/mm3 (150-375); Red Blood Count 5.62 M/mm3 (4.2-5.4); Red Cell Distribution Width 12.2 % (11.5-14.5); White Blood Count 8.9 K/mm3 (4.5-10.0)
[2023-12-13 11:04] LABS: Alanine Aminotransferase 33 U/L (6-35); Albumin Level 4.3 g/dL (3.5-5.1); Alkaline Phosphatase 77 U/L (38-126); Anion Gap 8 mmol/L (4-12); Aspartate Amino Transferase 32 U/L (14-36); Bilirubin,Total 0.3 mg/dL (0.2-1.3); Blood Urea Nitrogen 10 mg/dL (7-17); Calcium 9.2 mg/dL (8.4-10.2); Carbon Dioxide 28 mmol/L (22-30); Chloride 103 mmol/L (98-107); Cholesterol 197 mg/dL (0-200); Estimated Glomerular Filt Rate > 60; Glucose 244 mg/dL (65-110); HDL Direct 44 mg/dL; Potassium 3.9 mmol/L (3.4-5.0); Sodium 139 mmol/L (137-145); Triglycerides 223 mg/dL (<150)
[2023-12-13 11:16] LABS: LDL Cholesterol Direct 132 mg/dL
[2023-12-13 12:11] LABS: Hemoglobin A1C 8.5 % (<5.7)
== END 2023-12-13 10:18 | disposition home or self-care (01) ==
LOC: ANHLAB 10:19
PROVIDERS: PCP Family Medicine; Visit Provider Family Medicine
DX: E78.2 Mixed hyperlipidemia (principal); I10 Essential (primary) hypertension; E11.9 Type 2 diabetes mellitus without complications; E03.9 Hypothyroidism, unspecified
CPT/HCPCS: 36415; 80053; 80061; 83036; 84443; 85025

== ENCOUNTER 2024-12-01 12:11 | Outpatient (CLI) | payer BC, SELFPAY ==
--- OUTSIDE RECORDS SUMMARY | 2024-12-01 12:14 | XMS_ITS | Clinical Summary ---
Author Organization [facility] Address [address] [place] [id number] Care Team Providers Care Hot Baller Name Role Phone Unavailable Primary Care Provider Unavailabl e Social History Tobacco Use Types Packs/Day Years Used Date Smoking Tobacco: Never Assessed Comments Unknown Sex and Gender Information Value Date Recorded Sex Assigned at Not on file Legal Sex Female 4:32 PM CDT Gender Identity Not on file Sexual Orientation Not on file Plan of Treatment Health Maintenance Due Date Last Done Comments Cervical Cancer Screening Pa p Smear (Age 30 to 64) Every 3 Years 1973 Colorectal Cancer Screening Colonoscopy (10 Years) 1973 Annual Physical 1976 Hepatitis C 05/07/1991 DTaP, Tdap and Td Vaccines ( 1 - Tdap) 1992 Hepatitis B Vaccines (1 of 3 - 19+ 3-dose series) 1992 Cervical Cancer Screening Pa p with HPV Testing (Age 30 to 64) Every 5 Years 05/07/2003 Cervical Cancer Screening with HPV 05/07/2003 Mammogram Screening 2013 Pneumococcal Vaccine: 50+ Ye ars (1 of 1 - PCV) 05/07/2023 Zoster Vaccines (1 of 2) 05/07/2023 COVID-19 Vaccine ( - 2023-2 5 season) 2024 Influenza Adult (#1) 2024 Meningococcal B Vaccine Aged Out No l onger eligible based on patient's age to complete this topic Meningococcal Vaccine Aged Out No grecia nitesh eligible based on patient's age to complete this topic RSV Immunizations Under 20 Months Aged Out No longer eligible based on patient's age to complete this topic
--- OUTSIDE RECORDS SUMMARY | 2024-12-01 12:14 | XMS_ITS | Encounter Summary ---
Author Organization [facility] Address [address] [place] [address] Phone Care Team Providers Care Crepe Box Tender Name Role Phone Provider, Not On File Primary Care Provider Unav ailable Provider, None Primary Care Provider Unavailabl e Encounter Details Date Type Department Care Team (Late st Contact Info) Description 12/29/2020 Transcribe Orders [facility] Preop[facility]Pac[facility] [address] [place] [address] Donovan Aparicio MD [address] [place] [address] Pre-op testing (Primary Dx) Social History Tobacco Use Types Packs/Day Years Used Date Smoking Tobacco: Every Day Cigarettes 2 32.9 Started: 12/25/1991 Smokeless Tobacco: Never Comments:Started age of 16 Alcohol Use Standard Drinks/Week Comments Not Currently 0 (1 standard drink = 0.6 oz pur e alcohol) About 3 times a year Sexually Active Control Partners Comments Yes Male Comments No Sex and Gender Information Value Date Recorded Sex Assigned at Not on file Legal Sex Female 2:36 PM CDT Gender Identity Not on file Sexual Orientation Not on file COVID-19 Exposure Response Date Recorded In the last month, have you been in contact with someone who was confirmed or suspected to have Coronavirus / COVID-19? No / Unsure 12/25/2020 1:43 PM CDT documented as of this encounter Plan of Treatment Not on file documented as of this encounter Results * (ABNORMAL) HEMOGLOBIN & HEMATOCRIT (H&H) (01/05/2021 10:07 AM COTTON CLASSER) HEMOGLOBIN (HGB) 15.4 12.0 - 15.8 g/dL 01/05/2021 10:55 AM COTTON CLASSER [facility] HEMATOCRIT (HCT) 47.8(H) 36.0 - 47.0 % 01/05/2021 10:55 AM [facility]OT[facility] CLASSER [facility] Blood Venipuncture / Unknown 01/05/2021 10:07 AM COTTON CLASSER 01/05/2021 10:48 AM COTTON CLASSER us Donovan Aparicio MD HEMATOLOGY ORDERABLES Final R esult [facility] [address] [place] [address] documented in this encounter Visit Diagnoses Diagnosis Pre-op testing- Primary Preoperative examination, unspecified documented in this encounter Care Teams Crepe Box Tender Relationship Specialty Start Date End Date Provider, Not On File [place] PCP - General 12/24/20 01/04/21 Provider, None [place] PCP - General 01/05/21 documented as of this encounter
--- OUTSIDE RECORDS SUMMARY | 2024-12-01 12:14 | XMS_ITS | Clinical Summary ---
Author Organization [facility] Walt Dobbs Address [address] [place] [address] Care Team Providers Care Operations Clerk Name Role Phone Brooklyn Contreras MD Primary Care Provider [phone] Allergies No known active allergies Medications metformin HCl (METFORMIN ORAL) Take by mouth. Activ e empagliflozin (JARDIANCE ORAL) Take by mouth. Activ e dulaglutide (Trulicity) 1.5 mg/0.5 mL injection Inject 1.5 mg by subcutaneous injection. Active insulin detemir U-100 (Levemir FlexPen) 100 unit/mL pen syringe Inject by subcutaneous injection. Active aspirin (ECOTRIN EC) 81 mg Tablet, Delayed Release (E.C.) Take 81 mg by mouth daily. Active Active Problems No known active problems Family History Medical History Relation Name Comments Diabetes Father Cervical Cancer Mother Diabetes Mother Diabetes Sister Relation Name Status Comments Daughter 1 Alive Daughter 2 Alive Father Alive Mother Alive Sister Alive Son Alive Social History Tobacco Use Types Packs/Day Years Used Date Smoking Tobacco: Every Day Cigarettes 2 30 Alcohol Use Standard Drinks/Week Comments Yes 0 (1 standard drink = 0.6 oz pur e alcohol) occasional Comments Unknown Sex and Gender Information Value Date Recorded Sex Assigned at Not on file Legal Sex Female 8:42 AM CDT Gender Identity Not on file Sexual Orientation Not on file Last Filed Vital Signs Vital Sign Reading Time Taken Comments Blood Pressure 120/79 07/30/2022 10:53 AM CDT Pulse 85 07/30/2022 10:53 AM CDT Temperature 36.7 C (98 F) 07/30/2022 10:53 AM CDT Respiratory Rate 10 07/30/2022 10:53 AM CDT Oxygen Saturation 90% 07/30/2022 10:53 AM CDT Inhaled Oxygen Concentration - - Weight 89.4 kg (197 lb) 07/30/2022 10:53 AM CDT Height - - Body Mass Index - - Plan of Treatment Health Maintenance Due Date Last Done Comments DTAP/TDAP/TD VACCINES (1 - Tdap) 1992 HEPATITIS B VACCINES (1 of 3 - 19+ 3-dose series) 04/21 HPV/Cotest (21-29) 1994 CERVICAL CANCER SCREENING 05/07/2003 HPV/Cotest (30-65) 05/07/2003 PAP SMEAR 05/07/2003 BREAST CANCER SCREENING 2013 COLORECTAL SCREENING 2018 Colorectal Cancer Screening 2018 FIT-DNA Q 3 years 2018 FIT/FOBT Q 1 year 2018 Flex Sig/CT Colonography Q 5 years 2018 ZOSTER VACCINE (1 of 2) 05/07/2023 INFLUENZA VACCINE (#1) 2024 Insurance Vocab CHOICE Care Teams Operations Clerk Relationship Specialty Start Date End Date Brooklyn Contreras MD PCP - General Family Practice 05/12/22
--- OUTSIDE RECORDS SUMMARY | 2024-12-01 12:14 | XMS_ITS | Clinical Summary ---
Author Organization [facility] Address [address] [address] Phone Care Team Providers Care Kiosk Sales Representative Name Role Phone Provider, None Primary Care Provider Unavailabl e Allergies No known active allergies Medications ondansetron (ZOFRAN) 4 MG Tablet TAKE 1 TABLET BY MOUTH EVERY 8 HOURS NEEDED 12/15/2020 Active acetaminophen-co deine (TYLENOL #3) 300-30 MG Tablet TAKE 1 TABLET BY MOUTH EVERY 8 HOURS NEEDED 12/15/2020 Active Active Problems No known active problems Family History Medical History Relation Name Comments No Known Problems Daughter 1 No Known Problems Daughter 2 Heart Disease Father No Known Problems Maternal Grandfather Chronic Obstructive Pulmonary Disease Maternal Grandmo ther Emphysema Maternal Grandmother Diabetes Mother Heart Disease Mother Hypertension Mother Stroke Mother No Known Problems Paternal Grandfather No Known Problems Paternal Grandmother Drug Abuse Sister No Known Problems Son Relation Name Status Comments Daughter 1 Alive Daughter 2 Alive Father Alive Maternal Grandfather Maternal Grandmother Mother Alive Paternal Grandfather Paternal Grandmother Sister Alive Son Alive Social History Tobacco [...] Sign Reading Time Taken Comments Blood Pressure 114/78 12/24/2020 10:34 AM CDT Pulse 82 12/24/2020 10:34 AM CDT Temperature 36.3 C (97.3 F) 12/24/2020 10:34 AM CDT Respiratory Rate - - Oxygen Saturation 99% 12/24/2020 10:34 AM CDT Inhaled Oxygen Concentration - - Weight 93.9 kg (207 lb) 12/25/2020 11:00 AM CDT Height 154.9 cm (5' 1) 12/25/2020 11:00 AM CDT Body Mass Index 39.11 12/25/2020 11:00 AM CDT Plan of Treatment Health Maintenance Due Date Last Done Comments Hepatitis C Virus (HCV) Screening 1973 TdaP Immunization 1973 Hepatitis B Immunization (1 of 3 - 19+ 3-dose series) 1992 Pap Smear 1994 Cervical Cancer Screening (CCS) 05/07/2003 HPV/Cotest 05/07/2003 Cologuard 2018 Colonoscopy 2018 Colorectal Cancer Screening 2018 Immunochemical Fecal Occult Blood 2018 Pneumococcal Immunization (5 0+ years) (1 of 1 - PCV) 05/07/2023 Zoster Immunization (1 of 2) 05/07/2023 Influenza Immunization (#1) 2024 SARS-COV-2 Immunization (1 - 2023-25 season) 2024 Respiratory Syncytial Virus (RSV) Immunization (Adult) (1 - 1-dose 75+ series) 2048 Human Papillomavirus (HPV) Immunization Aged Out No longer eligible b ased on patient's age to complete this topic Meningococcal Immunization (ACWY) Aged Out No longer eligible based on patient's age to complete this topic Rotavirus Immunization Aged Out No lo nger eligible based on patient's age to complete this topic Insurance Care Teams Kiosk Sales Representative Relationship Specialty Start Date End Date Provider, None [place] PCP - General 01/05/21
--- OUTSIDE RECORDS SUMMARY | 2024-12-01 12:14 | XMS_ITS | Encounter Summary ---
Author Organization [facility] Address [address] [place] [address] Phone Care Team Providers Care Pen Tester Name Role Phone Provider, Not On File Primary Care Provider Unav ailable Provider, None Primary Care Provider Unavailabl e Encounter Details Date Type Department Care Team (Late st Contact Info) Description 12/25/2020 Transcribe Orders [facility] Preop[facility]Pac[facility] [address] [place] [address] Julio C Alvarez MD [address] [address] Pre-op testing (Primary Dx) Social History Tobacco [...] documented as of this encounter Results * SARS-COV-2 BY MOLECULAR (01/05/2021 10:07 AM TAR [facility]EL) SARSCOV2 NOT DETECTED (Referen ce Range for this test is Not Detected ) [facility] THERMOFISHER FAST DX 01/06/2021 10:12 AM T[facility] Comment:This test was perfor med by a RT-PCR method. Other NASOPHARYNGEAL STRUCTURE / Unknown Non-Phlebotomy Collection / Unknown 01/05/2021 10:07 AM TAR [facility] 01/05/2021 10:48 AM T[facility] Narrative [facility] - 01/06/2021 10:12 AM TAR HEEL Authorized Fact Sheets about this test for providers and patients are available at: https://www.fda.gov/medical-devices/qmtmomacd-mhbdsduujh-sghtwcx-devices/emergen -us e-authorizations us Julio C Alvarez MD MICROBIOLOGY - GENERAL ORDERABLE S Final Result [facility] [address] [place] [address], [place] documented in this encounter Visit Diagnoses Diagnosis Pre-op testing- Primary Preoperative examination, unspecified documented in this encounter Care Teams Pen Tester Relationship Specialty Start Date End Date Provider, Not On File [place] PCP - General 12/24/20 01/04/21 Provider, None [place] PCP - General 01/05/21 documented as of this encounter
[2024-12-01 13:00] LABS: Hematocrit 49.2 % (37.0-47.0); Hemoglobin 16.2 g/dL (12.0-15.0); Immature Granulocyte Percent A 0.8 % (0-0.5); Lymphocytes Absolute Auto 1.99 K/mm3 (0.9-3.2); Mean Corpuscular HGB Conc 32.9 g/dl (32-36); Mean Corpuscular Hemoglobin 29.0 pg (26-34); Mean Corpuscular Volume 88.2 fl (80-100); Nucleated Red Blood Cells Absolute Auto 0.000 K/mm3 (0.0-0.012); Nucleated Red Blood Cells Perc 0.0 % (0.0-0.2); Platelet Count Result 178 k/mm3 (150-375); Red Blood Count 5.58 M/mm3 (4.2-5.4); White Blood Count 7.2 K/mm3 (4.5-10.0)
[2024-12-01 13:14] LABS: Alanine Aminotransferase 47 U/L (6-35); Albumin Level 4.0 g/dL (3.5-5.1); Alkaline Phosphatase 83 U/L (38-126); Anion Gap 7 mmol/L (4-12); Aspartate Amino Transferase 37 U/L (14-36); Bilirubin,Total 0.7 mg/dL (0.2-1.3); Blood Urea Nitrogen 11 mg/dL (7-17); Calcium 9.1 mg/dL (8.4-10.2); Carbon Dioxide 27 mmol/L (22-30); Chloride 100 mmol/L (98-107); Cholesterol 258 mg/dL (0-200); Estimated Glomerular Filt Rate > 60; Glucose 242 mg/dL (65-110); HDL Direct 38 mg/dL; Potassium 3.9 mmol/L (3.4-5.0); Sodium 134 mmol/L (137-145); Total Protein 7.4 g/dL (6.3-8.2); Triglycerides 339 mg/dL (<150)
[2024-12-01 13:23] LABS: Hemoglobin A1C 9.9 % (<5.7)
[2024-12-01 13:43] LABS: MALB Creatinine Ratio < 15.3 mg/g (0-30)
== END 2024-12-01 12:12 | disposition home or self-care (01) ==
LOC: ANHLAB 12:13
PROVIDERS: PCP Family Medicine; Visit Provider Student in an Organized Health Care Education/Training Program
DX: E11.65 Type 2 diabetes mellitus with hyperglycemia (principal); Z79.4 Long term (current) use of insulin; I10 Essential (primary) hypertension
CPT/HCPCS: 36415; 80053; 80061; 82043; 83036; 85025